=== PATIENT | female | born 1945 | race Caucasian/White ===

== ENCOUNTER → 2016-11-30 | Outpatient (CLI) | payer OTHER | LOC: BRMIMAGING 13:55 | PROVIDERS: ATTEND Physician Assistant Medical | DX: Z13.820 Encounter for screening for osteoporosis (principal); M85.80 Other specified disorders of bone density and structure, unspecified site; Z78.0 Asymptomatic menopausal state ==

== ENCOUNTER → 2018-08-31 | Outpatient (CLI) | payer OTHER | LOC: BRMIMAGING 14:46 | PROVIDERS: ATTEND Physician Assistant Medical | DX: Z12.31 Encounter for screening mammogram for malignant neoplasm of breast (principal) ==